=== PATIENT | male | born 1990 | race Two or more races ===

== ENCOUNTER 2016-11-06 23:01 | Emergency (ER) | payer SELFPAY ==
[2016-11-06] MEDS ORDERED: LORazepam 2 MG/ML VIAL (J2060) As Ordered ONE (23:30)
[2016-11-06] MEDS ORDERED: ONDANSETRON 4MG/2ML VIAL (J2405) As Ordered ONE (23:30)
[2016-11-06] MEDS ORDERED: KETOROLAC 30 MG/ML VIAL (J1885) As Ordered ONE (23:30)
[2016-11-06 23:49] LABS: BASO % 0.3 % (0.0-1.0); EOS # 0.2 K/mm3 (0.0-0.50); LARGE UNSTAINED CELL # 0.2 K/mm3 (0.0-0.4); LARGE UNSTAINED CELL % 1.7 % (0.0-4.0); LYMPH # 1.2 K/mm3 (1.5-6.5); LYMPH % 10.4 % (24.0-44.0); MEAN CORPUSCULAR HGB CONC 34.7 g/dl (32.0-36.5); MEAN CORPUSCULAR VOLUME 89.4 fl (80.0-96.0); MONO # 0.5 K/mm3 (0.0-0.8); MONO % 4.7 % (0.0-5.0); NEUTROPHILS # 9.1 K/mm3 (1.8-7.7); NEUTROPHILS % 80.9 % (36.0-66.0); PLATELET COUNT, AUTOMATED 249 k/mm3 (150-450); WHITE BLOOD COUNT 11.2 K/mm3 (4.0-10.0)
--- NOTE | 2016-11-07 00:30 | REPUSA ---
CLINICAL HISTORY: Abdominal pain TECHNIQUE: CT of the abdomen and pelvis was performed without intravenous contrast by obtaining uriel guous CT axial slices from level of the heart to the proximal femoral diaphyses. Multiplanar reformat s were obtained in the coronal and sagittal projections. COMPARISON: None FINDINGS : LOWER CHEST: The lung bases are clear. Heart is normal in size. No pleural or pericardial effusion is seen. LIVER: The liver is normal in size and contour. BILIARY SYSTEM: No intrahepatic biliary ductal dilatation is seen. The common duct is normal in calib er. The gallbladder is unremarkable with no focal or diffuse wall thickening seen. No pericholecystic fluid is seen. No calcified biliary calculi are identified. PANCREAS: The pancreas is normal in size, contour and density. No suspicious cystic lesion or ductal dilatation. SPLEEN: Normal in size with no suspicious cystic lesion. ADRENALS: The adrenal glands are unremarkable. KIDNEYS/URETERS: The kidneys are normal in size. No calcified renal or ureteral calculi are seen. No suspicious cystic lesion or hydronephrosis. The ureters are not dilated. URINARY BLADDER: The urinary bladder is unremarkable without calcified stone, wall thickening or dive rticula seen. PROSTATE/SEMINAL VESICLES: Within normal size limits with no suspicious cystic lesion. AORTA AND ILIAC ARTERIES: No aneurysmal dilatation of the aorta or iliac arteries is seen. LYMPH NODES: No enlarged adenopathy. GASTROINTESTINAL: Stomach, duodenum and bowel normal in caliber with no abnormal dilatation, stenosis , or wall thickening. PERITONEUM/RETROPERITONEUM: No ascites or suspicious fluid collection, extraluminal air, or suspiciou s mass. ABDOMINAL/PELVIC WALL: No hernia is identified. OSSEOUS STRUCTURES/SOFT TISSUES: No suspicious osseous lesion, acute fracture, or soft tissue abnorma lity. IMPRESSION : No acute intra-abdominal pelvic abnormality identified
[2016-11-07 00:32] LABS: AMPHETAMINES LEVEL URINE NEGATIVE (NEGATIVE); BENZODIAZEPINES URINE NEGATIVE (NEGATIVE); COCAINE METABOLITE URINE NEGATIVE (NEGATIVE); CONTROL LINE INT CTR LINE PRESENT; METHADONE URINE NEGATIVE (NEGATIVE); OPIATES URINE NEGATIVE (NEGATIVE); TRICYCLIC ANTIDEPRESS URINE NEGATIVE (NEGATIVE)
[2016-11-07 00:37] LABS: INR 0.94
[2016-11-07 00:43] LABS: ALBUMIN 3.9 GM/DL (3.2-5.2); ALBUMIN/GLOBULIN RATIO 1.11 (1.00-1.93); ALKALINE PHOSPHATASE 113 U/L (45-117); ALT/SGPT 24 U/L (12-78); AMYLASE 60 U/L (25-115); ANION GAP 10 MEQ/L (8-16); AST/SGOT 15 U/L (15-37); BILIRUBIN,DIRECT 0.1 MG/DL (0.0-0.2); BILIRUBIN,TOTAL 0.4 MG/DL (0.2-1.0); BLOOD UREA NITROGEN 18 MG/DL (7-18); CALCIUM LEVEL 8.7 MG/DL (8.5-10.1); CARBON DIOXIDE LEVEL 24 MEQ/L (21-32); CHLORIDE LEVEL 105 MEQ/L (98-107); CREATININE FOR GFR 1.08 MG/DL (0.70-1.30); GLOMERULAR FILTRATION RATE > 60.0 (>60); GLUCOSE, FASTING 103 MG/DL (70-105); POTASSIUM SERUM 3.7 MEQ/L (3.5-5.1); SODIUM LEVEL 139 MEQ/L (136-145); TOTAL PROTEIN 7.4 GM/DL (6.4-8.2)
[2016-11-07] MEDS ORDERED: METOCLOPRAMIDE INJ 10MG/2ML VIAL (J2765) As Ordered ONE (02:04)
--- NOTE | 2016-11-07 02:04 | REP ---
Clinical: Cough . Comparison: None . Technique: PA and lateral. Findings: The mediastinum and cardiac silhouette are normal. The lung ascencio are clear and without acute consolidation, effusion, or pneumothorax. The skeletal structures are intact and normal. Impression: 1. No acute cardiopulmonary process. Signed by Lorenzo Proctor MD 11/07/2016 01:55 A
--- NOTE | 2016-11-07 03:14 | EDDOCDS ---
Physician Documentation [facility] Name: Tejas Roman Age: 25 yrs Sex: Male : 1990 Arrival Date: 11/06/2016 Time: 23:01 Bed 9 Private MD: Disposition: 11/07 02:51 Critical Care: Critical care not applicable. pc Disposition: 11/07/16 02:53 Discharged to Home/Self Care. Impression: Gastroparesis - idiopathic, Cannabis abuse. - Condition is Stable. - Prescriptions for Reglan 5 mg Oral tablet - take 1 tablet by ORAL route 4 times per day 30 minutes before meals and at bedtime; 20 tablet. - Medication Reconciliation, Local Pharmacy Hours, Blank Diagnosis Outline form. - [facility]; When: Call to arrange an appointment; Reason: To establish care. - Problem is new. - Symptoms have improved. Historical: - Allergies: SULFA (SULFONAMIDES); - Home Meds: 1. Tylenol elixer 2. Motrin 100 mg/5 mL Oral susp 3. Dayquil (Last dose: 11/06/2016 09:00) - PMHx: Kidney stones; - PSHx: Bowel resection (1991); Stone retrievals; - Social history: Smoking status: Patient uses tobacco products, heavy tobacco smoker. No barriers to communication noted, The patient speaks fluent Vietnamese, Speaks appropriately for age. - Family history: Sister has/had recent sore throat. - : The pt / caregiver states he / she is not on anticoagulants. Home medication list is obtained from the patient, family members. - Exposure Risk Screening:: None identified. Vital Signs: 11/06 23:13 BP 158 / 89 (auto/); mlc 23:14 Pulse 114 MON; Pulse Ox 97% ; mlc 23:18 BP 131 / 87; Pulse 107; Resp 18; Temp 98.5(O); Pulse Ox 98% on R/A; Pain 10/10; kmg1 23:24 Pulse 106 MON; Pulse Ox 96% ; mlc 11/07 00:46 BP 119 / 60; Pulse 80; Resp 18; Temp 100.0(O); Pulse Ox 99% ; Pain 9/10; mlc 00:46 Pain 9/10; mlc 02:11 Weight 81.65 kg / 180.01 lbs; Height 5 ft. 8 in. (172.72 cm); mgs 03:11 BP 118 / 59; Pulse 81; Resp 16; Temp 99.6; Pulse Ox 100% ; Pain 7/10; mlc 02:11 Body Mass Index 27.37 (81.65 kg, 172.72 cm) mgs MDM: 0208 23:19 NS 0.9% 1000 ml IV at 100 mL/hr continuous ordered. ke 23:19 Ondansetron 4 mg IVP once ordered. ke 23:19 ketorolac 30 mg IVP once ordered. ke 23:19 IV Saline Lock ordered. ke 23:19 Undress patient appropriately for examination ordered. ke 23:19 Amylase Ordered. EDMS 23:19 Basic Metabolic Profile Ordered. EDMS 23:19 CBC with Diff Ordered. EDMS 23:19 Lipase Ordered. EDMS 23:19 Liver Profile Ordered. EDMS 23:19 Prothrombin Time Profile\E\INR Ordered. EDMS 23:19 Urinalysis Ordered. EDMS 23:19 Urine Culture Ordered. EDMS 23:19 Urine Toxicology Ordered. EDMS 23:20 Obtain sample by nasopharyngeal swab ordered. ke 23:20 CT ABD & PELVIS: No Contrast Ordered. EDMS 23:21 LORazepam 0.5 mg IVP once ordered. ke 23:21 NOTHING BY MOUTH+DIET ordered. EDMS 23:21 -Influenza A&B Rapid Antigen - Nose Ordered. EDMS 23:21 Acetaminophen Level Ordered. EDMS 23:21 Salicylate Level Ordered. EDMS 23:21 ETOH Ordered. EDMS 23:21 CIP Ordered. EDMS 23:21 Troponin Ordered. EDMS 23:22 Chest, 2 View (pa\E\lat) Ordered. EDMS 23:46 ECG WITH READING ER PHYS+CARDIAG ordered. EDMS 23:59 Financial registration complete. pm4 11/07 00:19 [facility] [place] Payment Agreement was scanned into [employer] and attached to record. pm4 00:34 CBC with Diff Reviewed. pc 00:34 -Influenza A&B Rapid Antigen - Nose Reviewed. pc 01:33 Urinalysis Reviewed. pc 01:33 Urine Toxicology Reviewed. pc 01:33 Amylase Reviewed. pc 01:33 Basic Metabolic Profile Reviewed. pc 01:33 Lipase Reviewed. pc 01:33 Liver Profile Reviewed. pc 01:33 Prothrombin Time Profile\E\INR Reviewed. pc 01:33 CT ABD & PELVIS: No Contrast Reviewed. pc 02:00 Acetaminophen Level Reviewed. pc 02:00 Salicylate Level Reviewed. pc 02:00 ETOH Reviewed. pc 02:00 CIP Reviewed. pc 02:00 Troponin Reviewed. pc 02:00 Test interpretation: LAB - all labs as ordered have been reviewed, interpreted and pc considered in the overall management of the clinical presentation; interpreted by Radiologist and personally reviewed, Abdomen/Pelvis CT; read as normal but obvious gastric distension, gastroparesis. 02:01 Metoclopramide 10 mg IV at 40 mg/hr once over 15 mins ordered. pc 02:51 The patient has been re-examined and re-evaluated. The patient's symptoms have markedly pc improved after treatment. Disposition: The historical points, examination findings, and any diagnostic results supporting the provided diagnosis, were discussed with the patient or legal guardian. The need for outpatient follow up with the provider listed on their discharge instructions was discussed. They were encouraged to return to [facility], or the nearest ED, if symptoms worsen/persist, or for any other questions/concerns. 03:01 Chest, 2 View (pa\E\lat) Reviewed. pc Administered Medications: 11/06 23:50 Drug: NS 0.9% 1000 ml [sodium chloride 0.9 % intravenous solution] Route: IV; Rate: 100 mlc mL/hr; Site: right antecubital; 23:50 Drug: Ondansetron 4 mg [ondansetron HCl 2 mg/mL intravenous solution (2 mL)] Route: mlc IVP; Site: right antecubital; 11/07 00:45 Follow up: Response: [place] [facility] [place]06 23:50 Drug: ketorolac 30 mg [ketorolac 30 mg/mL (1 mL) injection solution (1 mL)] Route: IVP; [facility] [place]: right antecubital; 11/07 00:46 Follow up: Pain 9/10 Adult; Response: No significant change. [facility] [place]/06 23:50 Drug: LORazepam 0.5 mg [lorazepam 2 mg/mL injection solution (0.25 mL)] Route: IVP; [facility] [place]: right antecubital; 11/07 00:45 Follow up: Response: Anxiety is improved [facility] [place]:12 Drug: Metoclopramide 10 mg [metoclopramide 5 mg/mL injection solution] Route: IV; Rate: mgs 40 mg/hr; Infused Over: 15 mins; Site: right antecubital; Signatures: Dispatcher [employer] Olu Tipton MD MD pc Garrison, Kelly, RN RN kmg1 Cordell Graf, HARNESS PULLER HARNESS PULLER Melissa Arriaga RN RN mlc Delon Chatman, Reg Reg pm4 Geoffrey Navarro RN mgs The chart was reviewed and I authenticate all verbal orders and agree with the evaluation and treatment provided.Attachments: 00:19 [facility] Payment Agreement pm4 MTDD
--- NOTE | 2016-11-07 03:14 | EDDOCDS ---
Nurse's Notes [facility] Name: Tejas Roman Age: 25 yrs Sex: Male : 1990 Arrival Date: 11/06/2016 Time: 23:01 Bed 9 Private MD: Diagnosis: Gastroparesis-idiopathic;Cannabis abuse Presentation: 11/06 23:09 Presenting complaint: Patient states: Severe pain all over. No injury. Patient reports kmg1 that he has been in bed for three days with fevers as high as 103.7. Ear pain and mild cough at onset of illness. Patient reports that he drank an 8 oz bottle of childrens tylenol and an 6 oz bottle of childrens motrin this evening since 2129. Aspirin was not taken prior to arrival. Suicide/Homicide risk assessment- the patient denies having any suicidal and/or homicidal ideations and does not present with any other emotional, behavioral or mental health complaints. Status: Patient is not a service employee or dependent. Transition of care: patient was not received from another setting of care. 23:09 Acuity: SHELL Level 3 [facility] 23:09 Method Of Arrival: Walkin/Carried/Asstd km 23:18 Adult Sepsis Screening: The patient does not have new or worsening altered mentation. kmg1 Patient has a respiratory rate of greater than or equal to 22 (1 point). Systolic blood pressure is greater than 100. Patient has a qSOFA score of 1- Negative Sepsis Screen. Triage Assessment: 23:18 General: Appears distressed, uncomfortable, Behavior is anxious, crying, restless. km Pain: Location: Back, knes, hips, sides, shoulders and chest Pain currently is 10 out of 10 on a pain scale. Quality of pain is described as sharp, stabbing, Pain began 2-3 days ago. EENT: Denies pain in left ear and right ear. Cardiovascular: Rhythm is sinus tachycardia No ectopy. Chest pain is described as severe, quality is stabbing, radiates Does not radiate. episodes are continuous began 2229. Respiratory: Airway is patent Respiratory effort is even, unlabored, Respiratory pattern is regular, symmetrical, Reports cough that is. GI: Reports nausea, vomiting. Derm: Skin is diaphoretic. Historical: - Allergies: SULFA (SULFONAMIDES); - Home Meds: 1. Tylenol elixer 2. Motrin 100 mg/5 mL Oral susp 3. Dayquil (Last dose: 11/06/2016 09:00) - PMHx: Kidney stones; - PSHx: Bowel resection (1991); Stone retrievals; - Social history: Smoking status: Patient uses tobacco products, heavy tobacco smoker. No barriers to communication noted, The patient speaks fluent Moroccan, Speaks appropriately for age. - Family history: Sister has/had recent sore throat. - : The pt / caregiver states he / she is not on anticoagulants. Home medication list is obtained from the patient, family members. - Exposure Risk Screening:: None identified. Screenin:14 Screening information is obtained from the patient. Fall risk: No risks identified. mlc Assistance ADL's: requires no assistance with activities of daily living. Abuse/DV Screen: The patient / caregiver reports he/she is: not in a situation that causes fear, pain or injury. Nutritional screening: No deficits noted. Advance Directives: Currently, there is no health care proxy. home support is adequate. Assessment: 23:51 General: Appears ill, Behavior is cooperative, fussy. Pain: Location: generalized Pain mlc currently is 10 out of 10 on a pain scale. Neurological: Level of Consciousness is awake, alert, obeys commands, Oriented to person, place, time. Cardiovascular: Capillary refill < 3 seconds Heart tones S1 S2 present. Cardiovascular: Chest pain is denied. Respiratory: Airway is patent Respiratory effort is even, unlabored, Respiratory pattern is regular, Breath sounds are clear bilaterally. Reports cough that is productive, pain with cough. GI: Abdomen is non- distended Bowel sounds present X 4 quads. Abd is soft X 4 quads Reports nausea, vomiting. Derm: Skin is diaphoretic, Skin is normal. 11/07 00:46 Reassessment: Patient appears in no apparent distress at this time. pain decreased to mlc 9/10. resp easy/unlabored. pt reports feeling warm. IV fluids infusing per order. . 01:49 General: Appears in no apparent distress, comfortable, Behavior is cooperative, pt mlc resting on stretcher. IV fluids infusing per order. resp easy/unlabored. . 03:11 General: Appears in no apparent distress, comfortable, Behavior is cooperative. Pain: mlc Pain currently is 7 out of 10 on a pain scale. Neurological: Level of Consciousness is awake, alert, Oriented to person, place, time. Respiratory: Airway is patent Respiratory effort is even, unlabored, Respiratory pattern is regular. Derm: Skin is normal. Vital Signs: 11/06 23:13 BP 158 / 89 (auto/); mlc 23:14 Pulse 114 MON; Pulse Ox 97% ; mlc 23:18 BP 131 / 87; Pulse 107; Resp 18; Temp 98.5(O); Pulse Ox 98% on R/A; Pain 10/10; kmg1 23:24 Pulse 106 MON; Pulse Ox 96% ; mlc 02/09 00:46 BP 119 / 60; Pulse 80; Resp 18; Temp 100.0(O); Pulse Ox 99% ; Pain 9/10; mlc 00:46 Pain 9/10; mlc 02:11 Weight 81.65 kg; Height 5 ft. 8 in. (172.72 cm); s 03:11 BP 118 / 59; Pulse 81; Resp 16; Temp 99.6; Pulse Ox 100% ; Pain 7/10; mlc 02:11 Body Mass Index 27.37 (81.65 kg, 172.72 cm) [facility] ED Course: 11/06 23:02 Patient visited by Christiano Hicks. zo 23:02 Patient moved to Waiting zo 23:03 Melissa Shea,AZAR is Primary Nurse. kmg1 23:03 Patient moved to 9 kmg1 23:08 [facility] ke 23:08 Patient visited by Cordell Graf FNP. ke 23:08 Patient visited by Cordell Graf FNP. ke 23:12 Triage Initiated kmg1 23:14 The patient / caregiver is instructed regarding the plan of care and ED course. mlc 23:27 Patient visited by Georgina Harrell RN. kmg1 23:49 Troponin Sent. mlc 23:49 CIP Sent. mlc 23:49 ETOH Sent. mlc 23:49 Salicylate Level Sent. mlc 23:49 Acetaminophen Level Sent. mlc 23:50 -Influenza A&B Rapid Antigen - Nose Sent. mlc 23:51 Patient name changed from Tejas\S\\S\Sargent\S\ to Tejas\S\ \S\Abel. EDMS 23:51 Amylase Sent. mlc 23:51 Basic Metabolic Profile Sent. mlc 23:51 CBC with Diff Sent. mlc 23:51 Lipase Sent. mlc 23:51 Liver Profile Sent. mlc 23:51 Prothrombin Time Profile\E\INR Sent. mlc 23:53 Patient visited by Jennifer Ferrara PCA. cln 23:53 EKG done. (by ED staff). Reviewed by Cordell TRAMMELL. cln 23:53 Inserted saline lock: 20 gauge in right antecubital area and blood collected. [place] [facility] [place] tolerated the procedure well. by Pee Navarro RN. 23:54 Patient visited by Melissa Shea RN. mlc 23:55 Olu Ricks MD is Attending Physician. pc 02 00:05 Urine Toxicology Sent. mgs 00:05 Urine Culture Sent. mgs 00:05 Urinalysis Sent. mgs 00:19 Patient name changed from Tejas\S\ \S\Sargent\S\ to Tejas\S\Celso\S\Abel. EDMS 00:19 [facility] [place] Agreement was scanned into [employer] and attached to record. pm4 00:46 CT ABD & PELVIS: No Contrast Returned. EDMS 00:47 Patient visited by Melissa Shea RN. mlc 01:50 Patient visited by Melissa Shea RN. mlc 02:31 Chest, 2 View (pa\E\lat) Returned. EDMS 02:51 Patient visited by Olu Ricks MD. pc 02:52 [facility] is Referral Physician. pc 03:11 Cardiac monitoring not applicable on this patient. mlc 03:11 Discontinued IV lock intact, bleeding controlled, pressure dressing applied, No mlc redness/swelling at site. No procedures done that require assistance. Administered Medications: 11/06 23:50 Drug: NS 0.9% 1000 ml [sodium chloride 0.9 % intravenous solution] Route: IV; Rate: 100 mlc mL/hr; Site: right antecubital; 23:50 Drug: Ondansetron 4 mg [ondansetron HCl 2 mg/mL intravenous solution (2 mL)] Route: mlc IVP; Site: right antecubital; 11/07 00:45 Follow up: Response: Nausea is decreased [facility] 11/06 23:50 Drug: ketorolac 30 mg [ketorolac 30 mg/mL (1 mL) injection solution (1 mL)] Route: IVP; mlc Site: right antecubital; 11/07 00:46 Follow up: Pain 9/10 Adult; Response: No significant change. [facility] 11/06 23:50 Drug: LORazepam 0.5 mg [lorazepam 2 mg/mL injection solution (0.25 mL)] Route: IVP; [facility] Site: right antecubital; 11/07 00:45 Follow up: Response: Anxiety is improved [facility] 02:12 Drug: Metoclopramide 10 mg [metoclopramide 5 mg/mL injection solution] Route: IV; Rate: mgs 40 mg/hr; Infused Over: 15 mins; Site: right antecubital; Order Results: Lab Order: Amylase; SPEC'M 11/06/16 23:38 Test: AMYLASE; Value: 60; Range: 25-115; Units: U/L; Status: F Lab Order: Basic Metabolic Profile; SPEC'M 11/06/16 23:38 Test: GLUCOSE, FASTING; Value: 103; Range: 70-105; Units: MG/DL; Status: F Test: BLOOD UREA NITROGEN; Value: 18; Range: 7-18; Units: MG/DL; Status: F Test: CREATININE FOR GFR; Value: 1.08; Range: 0.70-1.30; Units: MG/DL; Status: F Test: GLOMERULAR FILTRATION RATE; Value: > 60.0; Range: >60; Status: F Test: SODIUM LEVEL; Value: 139; Range: 136-145; Units: MEQ/L; Status: F Test: POTASSIUM SERUM; Value: 3.7; Range: 3.5-5.1; Units: MEQ/L; Status: F Test: CHLORIDE LEVEL; Value: 105; Range: 98-107; Units: MEQ/L; Status: F Test: CARBON DIOXIDE LEVEL; Value: 24; Range: 21-32; Units: MEQ/L; Status: F Test: ANION GAP; Value: 10; Range: 8-16; Units: MEQ/L; Status: F Test: CALCIUM LEVEL; Value: 8.7; Range: 8.5-10.1; Units: MG/DL; Status: F Test Note: ; Units are mL/min/1.73 m2 Chronic Kidney Disease Staging per NKF: Stage I & II GFR >=60 Normal to Mildly Decreased Stage III GFR 30-59 Moderately Decreased Stage IV GFR 15-29 Severely Decreased Stage V GFR <15 Very Little GFR Left ESRD GFR <15 on FINGERNAIL TECHNICIAN Lab Order: CBC with Diff; BILL 11/06/16 23:38 Test: WHITE BLOOD COUNT; Value: 11.2; Range: 4.0-10.0; Abnormal: Above high normal; Units: K/mm3; Status: F Test: RED BLOOD COUNT; Value: 5.11; Range: 4.30-6.10; Units: M/mm3; Status: F Test: HEMOGLOBIN; Value: 15.9; Range: 14.0-18.0; Units: g/dl; Status: F Test: HEMATOCRIT; Value: 45.7; Range: 42.0-52.0; Units: %; Status: F Test: MEAN CORPUSCULAR VOLUME; Value: 89.4; Range: 80.0-96.0; Units: fl; Status: F Test: MEAN CORPUSCULAR HEMOGLOBIN; Value: 31.0; Range: 27.0-33.0; Units: pg; Status: F Test: MEAN CORPUSCULAR HGB CONC; Value: 34.7; Range: 32.0-36.5; Units: g/dl; Status: F Test: RED CELL DISTRIBUTION WIDTH; Value: 12.0; Range: 11.5-14.5; Units: %; Status: F Test: PLATELET COUNT, AUTOMATED; Value: 249; Range: 150-450; Units: k/mm3; Status: F Test: NEUTROPHILS %; Value: 80.9; Range: 36.0-66.0; Abnormal: Above high normal; Units: %; Status: F Test: LYMPH %; Value: 10.4; Range: 24.0-44.0; Abnormal: Below low normal; Units: %; Status: F Test: MONO %; Value: 4.7; Range: 0.0-5.0; Units: %; Status: F Test: EOS %; Value: 2.0; Range: 0.0-3.0; Units: %; Status: F Test: BASO %; Value: 0.3; Range: 0.0-1.0; Units: %; Status: F Test: LARGE UNSTAINED CELL %; Value: 1.7; Range: 0.0-4.0; Units: %; Status: F Test: NEUTROPHILS #; Value: 9.1; Range: 1.8-7.7; Abnormal: Above high normal; Units: K/mm3; Status: F Test: LYMPH #; Value: 1.2; Range: 1.5-6.5; Abnormal: Below low normal; Units: K/mm3; Status: F Test: MONO #; Value: 0.5; Range: 0.0-0.8; Units: K/mm3; Status: F Test: EOS #; Value: 0.2; Range: 0.0-0.50; Units: K/mm3; Status: F Test: BASO #; Value: 0.0; Range: 0.0-0.2; Units: K/mm3; Status: F Test: LARGE UNSTAINED CELL #; Value: 0.2; Range: 0.0-0.4; Units: K/mm3; Status: F Lab Order: Lipase; [facility]' 11/06/16 23:38 Test: LIPASE; Value: 96; Range: 73-393; Units: U/L; Status: F Lab Order: Liver Profile; [facility] 11/06/16 23:38 Test: AST/SGOT; Value: 15; Range: 15-37; Units: U/L; Status: F Test: ALT/SGPT; Value: 24; Range: 12-78; Units: U/L; Status: F Test: ALKALINE PHOSPHATASE; Value: 113; Range: 45-117; Units: U/L; Status: F Test: BILIRUBIN,TOTAL; Value: 0.4; Range: 0.2-1.0; Units: MG/DL; Status: F Test: BILIRUBIN,DIRECT; Value: 0.1; Range: 0.0-0.2; Units: MG/DL; Status: F Test: TOTAL PROTEIN; Value: 7.4; Range: 6.4-8.2; Units: GM/DL; Status: F Test: ALBUMIN; Value: 3.9; Range: 3.2-5.2; Units: GM/DL; Status: F Test: ALBUMIN/GLOBULIN RATIO; Value: 1.11; Range: 1.00-1.93; Status: F Lab Order: Prothrombin Time Profile\E\INR; SPEC'11/06/16 23:38 Test: PROTHROMBIN TIME; Value: 12.7; Range: 12.3-14.5; Units: SECONDS; Status: F Test: INR; Value: 0.94; Status: F Test Note: ; THERAPUTIC HUMAN INR VALUES INDICATIONS NORMAL RANGES PROPHYLAXIS/TREATMENT OF: VENOUS THROMBOSIS 2.0-3.0 PULMONARY EMBOLISM 2.0-3.0 PREVENTION OF SYSTEMIC EMBOLISM FROM: TISSUE HEART VALVES 2.0-3.0 ACUTE MYOCARDIAL INFARCTION 2.0-3.0 VALVULAR HEART DISEASE 2.0-3.0 ATRIAL FIBRILLATION 2.0-3.0 MECHANICAL VALVES(HIGH RISK) 2.5-3.5 RECURRENT MYOCARDIAL INFARCTION 2.5-3.5 Lab Order: Urinalysis; [facility] 11/07/16 00:03 Test: APPEARANCE, URINE; Value: CLEAR; Range: CLEAR; Status: F Test: COLOR, URINE; Value: YELLOW; Range: YELLOW; Status: F Test: PH,URINE; Value: 6.0; Range: 5.0-9.0; Units: UNITS; Status: F Test: SPECIFIC GRAVITY URINE AUTO; Value: 1.030; Range: 1.002-1.035; Status: F Test: PROTEIN, URINE AUTO; Value: NEGATIVE; Range: NEGATIVE; Units: mg/dL; Status: F Test: GLUCOSE, URINE (UA) AUTO; Value: NEGATIVE; Range: NEGATIVE; Units: mg/dL; Status: F Test: KETONE, URINE AUTO; Value: TRACE; Range: NEGATIVE; Abnormal: Above high normal; Units: mg/dL; Status: F Test: UROBILINOGEN, URINE AUTO; Value: 4.0; Range: 0.0-2.0; Abnormal: Above high normal; Units: mg/dL; Status: F Test: BILIRUBIN, URINE AUTO; Value: NEGATIVE; Range: NEGATIVE; Status: F Test: NITRITE, URINE AUTO; Value: NEGATIVE; Range: NEGATIVE; Status: F Test: LEUKOCYTE ESTERASE, URINE AUTO; Value: NEGATIVE; Range: NEGATIVE; Status: F Test: BLOOD, URINE BLOOD; Value: NEGATIVE; Range: NEGATIVE; Status: F Test: SPERM, URINE AUTO; Range: NONE; Status: I Test: WBC, URINE AUTO; Value: 0; Range: 0-3; Units: /HPF; Status: F Test: RBC, URINE AUTO; Value: 5; Range: 0-3; Abnormal: Above high normal; Units: /HPF; Status: F Test: BACTERIA, URINE AUTO; Value: NEGATIVE; Range: NEGATIVE; Status: F Test: SQUAMOUS EPITHELIAL CELL UR AU; Value: 0; Range: 0-6; Units: /HPF; Status: F Test: MUCUS, URINE; Value: SMALL; Range: NEGATIVE; Status: F Test: HYALINE CAST, URINE AUTO; Value: 0; Range: 0-1; Units: /LPF; Status: F Lab Order: Urine Toxicology; SPEC'M 11/07/16 00:03 Test: AMPHETAMINES LEVEL URINE; Value: NEGATIVE; Range: NEGATIVE; Status: F Test: BARBITURATES URINE; Value: NEGATIVE; Range: NEGATIVE; Status: F Test: BENZODIAZEPINES URINE; Value: NEGATIVE; Range: NEGATIVE; Status: F Test: CANNABINOIDS URINE; Value: POSITIVE; Range: NEGATIVE; Abnormal: Above high normal; Status: F Test: COCAINE METABOLITE URINE; Value: NEGATIVE; Range: NEGATIVE; Status: F Test: METHADONE URINE; Value: NEGATIVE; Range: NEGATIVE; Status: F Test: OPIATES URINE; Value: NEGATIVE; Range: NEGATIVE; Status: F Test: TRICYCLIC ANTIDEPRESS URINE; Value: NEGATIVE; Range: NEGATIVE; Status: F Test Note: ; FALSE POSITIVE RESULTS CAN BE CAUSED BY THE USE OF PANTOPRAZOLE (PROTONIX). Lab Order: -Influenza A&B Rapid Antigen - Nose; SPEC'M 11/06/16 23:38 Test: INFLUENZA A RAPID SCR by ICA; Value: INFLUENZA A RESULTS NEGATIVE; Status: F Test: INFLUENZA A RAPID SCR by ICA; Value: Comments:; Status: F Test: INFLUENZA B RAPID SCR by ICA; Value: INFLUENZA B RESULTS NEGATIVE; Status: F Test Note: ; The Influenza test is a direct rapid immunoassay for the qualitative detection of Influenza viral antigen. Cell culture (Viral Culture) testing should be considered to confirm NEGATIVE results and to assist in detecting other viruses that can provide similar clinical symptoms. Please contact the lab within 24 hours ([phone]) if confirmatory testing is desired. Lab Order: Acetaminophen Level; SPEC'M 11/06/16 23:38 Test: ACETAMINOPHEN LEVEL; Value: < 2.0; Range: 10.0-30.0; Abnormal: Below low normal; Units: UG/ML; Status: F Lab Order: Salicylate Level; SPEC11/06/16 23:38 Test: SALICYLATE LEVEL; Value: < 1.7; Range: 5.0-30.0; Abnormal: Below low normal; Units: MG/DL; Status: F Lab Order: ETOH; SPEC11/06/16 23:38 Test: ETHYL ALCOHOL (ETHANOL); Value: < 0.003; Range: 0.000-0.010; Units: %; Status: F Lab Order: CIP; SPEC11/06/16 23:38 Test: CPK CREATINE PHOSPHOKINASE; Value: 93; Range: 39-308; Units: U/L; Status: F Test: CK-MB VALUE MASS; Value: 1.0; Range: 0.0-3.6; Units: NG/ML; Status: F Test: MB/CK RELATIVE INDEX; Value: 1.07; Range: < OR =4; Status: F Test Note: ; DIAGNOSIS CRITERIA MMB ng/ml Relative Index (RI) NON-AMI < or = 5 N/A [place] ZONE > 5 < or = 4 AMI > 5 > 4 Lab Order: Troponin; 11/06/16 23:38 Test: TROPONIN I; Value: < 0.02; Range: < 0.10; Units: NG/ML; Status: F Test Note: ; Troponin I Reference Interval for [employer] LOCI: 99th Percentile= 0.00-0.045 ng/ml Risk Stratification: <= 0.10 ng/ml Decreased Risk for Adverse Clinical Events. 0.10-1.50 ng/ml Increased Risk for Adverse Clinical Events. Evaluation of additional criterion and/or repeat testing in 2-6 hours is suggested to rule out myocardial damage. >= 1.50 ng/ml Indicative of Myocardial Injury. Radiology Order: CT ABD & PELVIS: No Contrast Test: CT ABD & PELVIS: No Contrast REASON FOR EXAMINATION: Abdomen Pain; ; CLINICAL HISTORY: Abdominal pain; TECHNIQUE: CT of the abdomen and pelvis was performed without intravenous contrast by obtaining uriel; guous CT axial slices from level of the heart to the proximal femoral diaphyses. Multiplanar reformat; s were obtained in the coronal and sagittal projections.; COMPARISON: None; FINDINGS :; LOWER CHEST: The lung bases are clear. Heart is normal in size. No pleural or pericardial effusion is; seen.; LIVER: The liver is normal in size and contour.; BILIARY SYSTEM: No intrahepatic biliary ductal dilatation is seen. The common duct is normal in calib; er. The gallbladder is unremarkable with no focal or diffuse wall thickening seen. No pericholecystic; fluid is seen. No calcified biliary calculi are identified.; PANCREAS: The pancreas is normal in size, contour and density. No suspicious cystic lesion or ductal; dilatation.; SPLEEN: Normal in size with no suspicious cystic lesion.; ADRENALS: The adrenal glands are unremarkable.; KIDNEYS/URETERS: The kidneys are normal in size. No calcified renal or ureteral calculi are seen. No; suspicious cystic lesion or hydronephrosis. The ureters are not dilated.; URINARY BLADDER: The urinary bladder is unremarkable without calcified stone, wall thickening or dive; rticula seen.; PROSTATE/SEMINAL VESICLES: Within normal size limits with no suspicious cystic lesion.; AORTA AND ILIAC ARTERIES: No aneurysmal dilatation of the aorta or iliac arteries is seen.; LYMPH NODES: No enlarged adenopathy.; GASTROINTESTINAL: Stomach, duodenum and bowel normal in caliber with no abnormal dilatation, stenosis; , or wall thickening.; PERITONEUM/RETROPERITONEUM: No ascites or suspicious fluid collection, extraluminal air, or suspiciou; s mass.; ABDOMINAL/PELVIC WALL: No hernia is identified.; OSSEOUS STRUCTURES/SOFT TISSUES: No suspicious osseous lesion, acute fracture, or soft tissue abnorma; lity.; IMPRESSION :; No acute intra-abdominal pelvic abnormality identified; ; Radiology Order: Chest, 2 View (pa\E\lat) Test: Chest, 2 View (pa\E\lat) REASON FOR EXAMINATION: Cough; Clinical: Cough .; ; Comparison: None .; ; Technique: PA and lateral.; ; Findings:; The mediastinum and cardiac silhouette are normal. The lung ascencio are clear and; without acute consolidation, effusion, or pneumothorax. The skeletal structures; are intact and normal.; ; Impression:; 1. No acute cardiopulmonary process.; ; ; Signed by; Lorenzo Proctor MD 11/07/2016 01:55 A; Outcome: 02:53 Discharge ordered by Provider. 03:11 Discharge Assessment: Patient awake, alert and oriented x 3. No cognitive and/or mlc functional deficits noted. Patient verbalized understanding of disposition instructions. patient administered narcotics - yes. Pt provided with safe discharge. The following High Risk Discharge criteria are identified: None. Discharged to home ambulatory, with family. Condition: good Condition: stable Condition: improved. Discharge instructions given to patient, Instructed on discharge instructions, follow up and referral plans. medication usage, Demonstrated understanding of instructions, medications, Pt was receptive of discharge instructions/ teaching. Prescriptions given X 1. CT Study completed. Property sent home with patient. 03:13 Patient left the ED. [facility] Signatures: Dispatcher [employer] EDMS lOu Ricks MD MD pc Garrison, Kelly, RN RN [facility] Cordell Graf FNP FNP ke Olin, Zoeann zo Booth, Mandy,AZAR RN [facility] Geoffrey Navarro RN RN mgs Jennifer Ferrara, RN ALLERGY RN ALLERGY cln Delon Chatman, Reg Reg pm4 Corrections: (The following items were deleted from the chart) 11/06 23:22 23:09 Presenting complaint: Patient states: Severe pain all over. No injury. Patient anish reports that he has been in bed for three days with fevers as high as 103.7. Ear pain and mild cough at onset of illness. anish MTDD
--- NOTE | 2016-11-08 20:14 | ECGEPIP ---
Stationary ECG Study [facility] - ED Test Date: 2016-11-06 Pat Name: GRIFFIN MULLIGAN Department: Room: - Gender: M Warehousing Technician: patrick : 1990 Requested By: ROXANN TRAMMELL Order Number: [id number] Reading MD: Bhavna Ramirez Measurements Intervals [place] Rate: 83 P: 39 SC: 145 QRS: 24 QRSD: 92 T: 40 QT: 324 QTc: 381 Interpretive Statements SINUS RHYTHM WITH SINUS ARRHYTHMIA NO PRIOR FOR COMPARISON Electronically Signed On 11-08-2016 20:14:13 EST by Bhavna Ramirez
--- NOTE | 2016-11-09 04:14 | EDDOCDS ---
Nurse's Notes [facility] Name: Tejas Roman Age: 25 yrs Sex: Male : 1990 Arrival Date: 11/06/2016 Time: 23:01 Bed 9 Private MD: Diagnosis: Gastroparesis-idiopathic;Cannabis abuse Presentation: 11/06 23:09 Presenting complaint: Patient states: Severe pain all over. No injury. Patient reports kmg1 that he has been in bed for three days with fevers as high as 103.7. Ear pain and mild cough at onset of illness. Patient reports that he drank an 8 oz bottle of childrens tylenol and an 6 oz bottle of childrens motrin this evening since 2129. Aspirin was not taken prior to arrival. Suicide/Homicide risk assessment- the patient denies having any suicidal and/or homicidal ideations and does not present with any other emotional, behavioral or mental health complaints. Status: Patient is not a nursing services manager or dependent. Transition of care: patient was not received from another setting of care. 23:09 Acuity: [place] 3 [facility] [place] Method Of Arrival: Walkin/Carried/Asstd km 23:18 Adult Sepsis Screening: The patient does not have new or worsening altered mentation. kmg1 Patient has a respiratory rate of greater than or equal to 22 (1 point). Systolic blood pressure is greater than 100. Patient has a qSOFA score of 1- Negative Sepsis Screen. Triage Assessment: 23:18 General: Appears distressed, uncomfortable, Behavior is anxious, crying, restless. km Pain: Location: Back, knes, hips, sides, shoulders and chest Pain currently is 10 out of 10 on a pain scale. Quality of pain is described as sharp, stabbing, Pain began 2-3 days ago. EENT: Denies pain in left ear and right ear. Cardiovascular: Rhythm is sinus tachycardia No ectopy. Chest pain is described as severe, quality is stabbing, radiates Does not radiate. episodes are continuous began 2229. Respiratory: Airway is patent Respiratory effort is even, unlabored, Respiratory pattern is regular, symmetrical, Reports cough that is. GI: Reports nausea, vomiting. Derm: Skin is diaphoretic. Historical: - Allergies: SULFA (SULFONAMIDES); - Home Meds: 1. Tylenol elixer 2. Motrin 100 mg/5 mL Oral susp 3. Dayquil (Last dose: 11/06/2016 09:00) - PMHx: Kidney stones; - PSHx: Bowel resection (1991); Stone retrievals; - Social history: Smoking status: Patient uses tobacco products, heavy tobacco smoker. No barriers to communication noted, The patient speaks fluent Canadian, Speaks appropriately for age. - Family history: Sister has/had recent sore throat. - : The pt / caregiver states he / she is not on anticoagulants. Home medication list is obtained from the patient, family members. - Exposure Risk Screening:: None identified. Screenin:14 Screening information is obtained from the patient. Fall risk: No risks identified. mlc Assistance ADL's: requires no assistance with activities of daily living. Abuse/DV Screen: The patient / caregiver reports he/she is: not in a situation that causes fear, pain or injury. Nutritional screening: No deficits noted. Advance Directives: Currently, there is no health care proxy. home support is adequate. Assessment: 23:51 General: Appears ill, Behavior is cooperative, fussy. Pain: Location: generalized Pain mlc currently is 10 out of 10 on a pain scale. Neurological: Level of Consciousness is awake, alert, obeys commands, Oriented to person, place, time. Cardiovascular: Capillary refill < 3 seconds Heart tones S1 S2 present. Cardiovascular: Chest pain is denied. Respiratory: Airway is patent Respiratory effort is even, unlabored, Respiratory pattern is regular, Breath sounds are clear bilaterally. Reports cough that is productive, pain with cough. GI: Abdomen is non- distended Bowel sounds present X 4 quads. Abd is soft X 4 quads Reports nausea, vomiting. Derm: Skin is diaphoretic, Skin is normal. 11/07 00:46 Reassessment: Patient appears in no apparent distress at this time. pain decreased to mlc 9/10. resp easy/unlabored. pt reports feeling warm. IV fluids infusing per order. . 01:49 General: Appears in no apparent distress, comfortable, Behavior is cooperative, pt mlc resting on stretcher. IV fluids infusing per order. resp easy/unlabored. . 03:11 General: Appears in no apparent distress, comfortable, Behavior is cooperative. Pain: mlc Pain currently is 7 out of 10 on a pain scale. Neurological: Level of Consciousness is awake, alert, Oriented to person, place, time. Respiratory: Airway is patent Respiratory effort is even, unlabored, Respiratory pattern is regular. Derm: Skin is normal. Vital Signs: 11/06 23:13 BP 158 / 89 (auto/); mlc 23:14 Pulse 114 MON; Pulse Ox 97% ; mlc 23:18 BP 131 / 87; Pulse 107; Resp 18; Temp 98.5(O); Pulse Ox 98% on R/A; Pain 10/10; kmg1 23:24 Pulse 106 MON; Pulse Ox 96% ; mlc 02/09 00:46 BP 119 / 60; Pulse 80; Resp 18; Temp 100.0(O); Pulse Ox 99% ; Pain 9/10; mlc 00:46 Pain 9/10; mlc 02:11 Weight 81.65 kg; Height 5 ft. 8 in. (172.72 cm); s 03:11 BP 118 / 59; Pulse 81; Resp 16; Temp 99.6; Pulse Ox 100% ; Pain 7/10; mlc 02:11 Body Mass Index 27.37 (81.65 kg, 172.72 cm) [facility] [place]: 11/06 23:02 Patient visited by Christiano Hicks. zo 23:02 Patient moved to Waiting zo 23:03 Melissa Shea,AZAR is Primary Nurse. kmg1 23:03 Patient moved to 9 kmg1 23:08 Cordell Graf FNP [facility]. ke 23:08 Patient visited by Cordell Graf FNP. ke 23:08 Patient visited by Cordell Graf FNP. ke 23:12 Triage Initiated kmg1 23:14 The patient / caregiver is instructed regarding the plan of care and ED course. mlc 23:27 Patient visited by Georgina Harrell RN. kmg1 23:49 Troponin Sent. mlc 23:49 CIP Sent. mlc 23:49 ETOH Sent. mlc 23:49 Salicylate Level Sent. mlc 23:49 Acetaminophen Level Sent. mlc 23:50 -Influenza A&B Rapid Antigen - Nose Sent. mlc 23:51 Patient name changed from Tejas\S\\S\[place]\S\ to Tejas\S\ \S\[place]. EDMS 23:51 Amylase Sent. mlc 23:51 Basic Metabolic Profile Sent. mlc 23:51 CBC with Diff Sent. mlc 23:51 Lipase Sent. mlc 23:51 Liver Profile Sent. mlc 23:51 Prothrombin Time Profile\E\INR Sent. mlc 23:53 Patient visited by Jennifer Ferrara PCA. cln 23:53 EKG done. (by ED staff). Reviewed by Cordell TRAMMELL. cln 23:53 Inserted saline lock: 20 gauge in right antecubital area and blood collected. The mlc patient tolerated the procedure well. by Pee Navarro RN. 23:54 Patient visited by Melissa Shea RN. mlc 23:55 Olu Ricks MD is Attending Physician. pc 0209 00:05 Urine Toxicology Sent. mgs 00:05 Urine Culture Sent. mgs 00:05 Urinalysis Sent. mgs 00:19 Patient name changed from Tejas\S\ \S\[place]\S\ to Tejas\S\[place]\S\Abel. EDMS 00:19 [facility] [place] Agreement was scanned into [employer] and attached to record. pm4 00:46 CT ABD & PELVIS: No Contrast Returned. EDMS 00:47 Patient visited by Melissa Shea RN. mlc 01:50 Patient visited by Melissa Shea RN. mlc 02:31 Chest, 2 View (pa\E\lat) Returned. EDMS 02:51 Patient visited by Olu Ricks MD. pc 02:52 [facility] is Referral Physician. pc 03:11 Cardiac monitoring not applicable on this patient. mlc 03:11 Discontinued IV lock intact, bleeding controlled, pressure dressing applied, No mlc redness/swelling at site. No procedures done that require assistance. 09:18 T-Sheet-- Draft Copy was scanned into [employer] and attached to record. gb 09:18 ECG/EKG was scanned into [employer] and attached to record. gb 09:19 Radiology Report was scanned into [employer] and attached to record. gb 02 20:20 EKG-ADULT Returned. EDMS Administered Medications: 11/06 23:50 Drug: NS 0.9% 1000 ml [sodium chloride 0.9 % intravenous solution] Route: IV; Rate: 100 mlc mL/hr; Site: right antecubital; 23:50 Drug: Ondansetron 4 mg [ondansetron HCl 2 mg/mL intravenous solution (2 mL)] Route: [facility] [place]; Site: right antecubital; 11/07 00:45 Follow up: Response: Nausea is decreased [facility] [place] 11/06 23:50 Drug: ketorolac 30 mg [ketorolac 30 mg/mL (1 mL) injection solution (1 mL)] Route: [place]P; [facility] [place] Site: right antecubital; 11/07 00:46 Follow up: Pain 9/10 Adult; Response: No significant change. [facility] [place]/06 23:50 Drug: LORazepam 0.5 mg [lorazepam 2 mg/mL injection solution (0.25 mL)] Route: IVP; [facility] [place] Site: right antecubital; 11/07 00:45 Follow up: Response: Anxiety is improved [facility] [place] 02:12 Drug: Metoclopramide 10 mg [metoclopramide 5 mg/mL injection solution] Route: IV; Rate: mgs 40 mg/hr; Infused Over: 15 mins; Site: right antecubital; Order Results: Lab Order: Amylase; SPEC'M 11/06/16 23:38 Test: AMYLASE; Value: 60; Range: 25-115; Units: U/L; Status: F Lab Order: Basic Metabolic Profile; SPEC'M 11/06/16 23:38 Test: GLUCOSE, FASTING; Value: 103; Range: 70-105; Units: MG/DL; Status: F Test: BLOOD UREA NITROGEN; Value: 18; Range: 7-18; Units: MG/DL; Status: F Test: CREATININE FOR GFR; Value: 1.08; Range: 0.70-1.30; Units: MG/DL; Status: F Test: GLOMERULAR FILTRATION RATE; Value: > 60.0; Range: >60; Status: F Test: SODIUM LEVEL; Value: 139; Range: 136-145; Units: MEQ/L; Status: F Test: POTASSIUM SERUM; Value: 3.7; Range: 3.5-5.1; Units: MEQ/L; Status: F Test: CHLORIDE LEVEL; Value: 105; Range: 98-107; Units: MEQ/L; Status: F Test: CARBON DIOXIDE LEVEL; Value: 24; Range: 21-32; Units: MEQ/L; Status: F Test: ANION GAP; Value: 10; Range: 8-16; Units: MEQ/L; Status: F Test: CALCIUM LEVEL; Value: 8.7; Range: 8.5-10.1; Units: MG/DL; Status: F Test Note: ; Units are mL/min/1.73 m2 Chronic Kidney Disease Staging per NKF: Stage I & II GFR >=60 Normal to Mildly Decreased Stage III GFR 30-59 Moderately Decreased Stage IV GFR 15-29 Severely Decreased Stage V GFR <15 Very Little GFR Left ESRD GFR <15 on [employer] Lab Order: CBC with Diff; SPEC'M 11/06/16 23:38 Test: WHITE BLOOD COUNT; Value: 11.2; Range: 4.0-10.0; Abnormal: Above high normal; Units: K/mm3; Status: F Test: RED BLOOD COUNT; Value: 5.11; Range: 4.30-6.10; Units: M/mm3; Status: F Test: HEMOGLOBIN; Value: 15.9; Range: 14.0-18.0; Units: g/dl; Status: F Test: HEMATOCRIT; Value: 45.7; Range: 42.0-52.0; Units: %; Status: F Test: MEAN CORPUSCULAR VOLUME; Value: 89.4; Range: 80.0-96.0; Units: fl; Status: F Test: MEAN CORPUSCULAR HEMOGLOBIN; Value: 31.0; Range: 27.0-33.0; Units: pg; Status: F Test: MEAN CORPUSCULAR HGB CONC; Value: 34.7; Range: 32.0-36.5; Units: g/dl; Status: F Test: RED CELL DISTRIBUTION WIDTH; Value: 12.0; Range: 11.5-14.5; Units: %; Status: F Test: PLATELET COUNT, AUTOMATED; Value: 249; Range: 150-450; Units: k/mm3; Status: F Test: NEUTROPHILS %; Value: 80.9; Range: 36.0-66.0; Abnormal: Above high normal; Units: %; Status: F Test: LYMPH %; Value: 10.4; Range: 24.0-44.0; Abnormal: Below low normal; Units: %; Status: F Test: MONO %; Value: 4.7; Range: 0.0-5.0; Units: %; Status: F Test: EOS %; Value: 2.0; Range: 0.0-3.0; Units: %; Status: F Test: BASO %; Value: 0.3; Range: 0.0-1.0; Units: %; Status: F Test: LARGE UNSTAINED CELL %; Value: 1.7; Range: 0.0-4.0; Units: %; Status: F Test: NEUTROPHILS #; Value: 9.1; Range: 1.8-7.7; Abnormal: Above high normal; Units: K/mm3; Status: F Test: LYMPH #; Value: 1.2; Range: 1.5-6.5; Abnormal: Below low normal; Units: K/mm3; Status: F Test: MONO #; Value: 0.5; Range: 0.0-0.8; Units: K/mm3; Status: F Test: EOS #; Value: 0.2; Range: 0.0-0.50; Units: K/mm3; Status: F Test: BASO #; Value: 0.0; Range: 0.0-0.2; Units: K/mm3; Status: F Test: LARGE UNSTAINED CELL #; Value: 0.2; Range: 0.0-0.4; Units: K/mm3; Status: F Lab Order: Lipase; [facility] 11/06/16 23:38 Test: LIPASE; Value: 96; Range: 73-393; Units: U/L; Status: F Lab Order: Liver Profile; [facility] 11/06/16 23:38 Test: AST/SGOT; Value: 15; Range: 15-37; Units: U/L; Status: F Test: ALT/SGPT; Value: 24; Range: 12-78; Units: U/L; Status: F Test: ALKALINE PHOSPHATASE; Value: 113; Range: 45-117; Units: U/L; Status: F Test: BILIRUBIN,TOTAL; Value: 0.4; Range: 0.2-1.0; Units: MG/DL; Status: F Test: BILIRUBIN,DIRECT; Value: 0.1; Range: 0.0-0.2; Units: MG/DL; Status: F Test: TOTAL PROTEIN; Value: 7.4; Range: 6.4-8.2; Units: GM/DL; Status: F Test: ALBUMIN; Value: 3.9; Range: 3.2-5.2; Units: GM/DL; Status: F Test: ALBUMIN/GLOBULIN RATIO; Value: 1.11; Range: 1.00-1.93; Status: F Lab Order: Prothrombin Time Profile\E\INR; [facility] 11/06/16 23:38 Test: PROTHROMBIN TIME; Value: 12.7; Range: 12.3-14.5; Units: SECONDS; Status: F Test: INR; Value: 0.94; Status: F Test Note: ; THERAPUTIC HUMAN INR VALUES INDICATIONS NORMAL RANGES PROPHYLAXIS/TREATMENT OF: VENOUS THROMBOSIS 2.0-3.0 PULMONARY EMBOLISM 2.0-3.0 PREVENTION OF SYSTEMIC EMBOLISM FROM: TISSUE HEART VALVES 2.0-3.0 ACUTE MYOCARDIAL INFARCTION 2.0-3.0 VALVULAR HEART DISEASE 2.0-3.0 ATRIAL FIBRILLATION 2.0-3.0 MECHANICAL VALVES(HIGH RISK) 2.5-3.5 RECURRENT MYOCARDIAL INFARCTION 2.5-3.5 Lab Order: Urinalysis; [facility] 11/07/16 00:03 Test: APPEARANCE, URINE; Value: CLEAR; Range: CLEAR; Status: F Test: COLOR, URINE; Value: YELLOW; Range: YELLOW; Status: F Test: PH,URINE; Value: 6.0; Range: 5.0-9.0; Units: UNITS; Status: F Test: SPECIFIC GRAVITY URINE AUTO; Value: 1.030; Range: 1.002-1.035; Status: F Test: PROTEIN, URINE AUTO; Value: NEGATIVE; Range: NEGATIVE; Units: mg/dL; Status: F Test: GLUCOSE, URINE (UA) AUTO; Value: NEGATIVE; Range: NEGATIVE; Units: mg/dL; Status: F Test: KETONE, URINE AUTO; Value: TRACE; Range: NEGATIVE; Abnormal: Above high normal; Units: mg/dL; Status: F Test: UROBILINOGEN, URINE AUTO; Value: 4.0; Range: 0.0-2.0; Abnormal: Above high normal; Units: mg/dL; Status: F Test: BILIRUBIN, URINE AUTO; Value: NEGATIVE; Range: NEGATIVE; Status: F Test: NITRITE, URINE AUTO; Value: NEGATIVE; Range: NEGATIVE; Status: F Test: LEUKOCYTE ESTERASE, URINE AUTO; Value: NEGATIVE; Range: NEGATIVE; Status: F Test: BLOOD, URINE BLOOD; Value: NEGATIVE; Range: NEGATIVE; Status: F Test: SPERM, URINE AUTO; Range: NONE; Status: I Test: WBC, URINE AUTO; Value: 0; Range: 0-3; Units: /HPF; Status: F Test: RBC, URINE AUTO; Value: 5; Range: 0-3; Abnormal: Above high normal; Units: /HPF; Status: F Test: BACTERIA, URINE AUTO; Value: NEGATIVE; Range: NEGATIVE; Status: F Test: SQUAMOUS EPITHELIAL CELL UR AU; Value: 0; Range: 0-6; Units: /HPF; Status: F Test: MUCUS, URINE; Value: SMALL; Range: NEGATIVE; Status: F Test: HYALINE CAST, URINE AUTO; Value: 0; Range: 0-1; Units: /LPF; Status: F Lab Order: Urine Culture; SPEC'M 11/07/16 00:03 Test: URINE CULTURE; Value: <EXTERNAL COMMENT eCWMed> FULL REPORT IN LAB NOTES (eCW and Medent).; Status: F Test: URINE CULTURE; Value: URINE CULTURE RESULT NO GROWTH; Status: F Lab Order: Urine Toxicology; SPEC'M 11/07/16 00:03 Test: AMPHETAMINES LEVEL URINE; Value: NEGATIVE; Range: NEGATIVE; Status: F Test: BARBITURATES URINE; Value: NEGATIVE; Range: NEGATIVE; Status: F Test: BENZODIAZEPINES URINE; Value: NEGATIVE; Range: NEGATIVE; Status: F Test: CANNABINOIDS URINE; Value: POSITIVE; Range: NEGATIVE; Abnormal: Above high normal; Status: F Test: COCAINE METABOLITE URINE; Value: NEGATIVE; Range: NEGATIVE; Status: F Test: METHADONE URINE; Value: NEGATIVE; Range: NEGATIVE; Status: F Test: OPIATES URINE; Value: NEGATIVE; Range: NEGATIVE; Status: F Test: TRICYCLIC ANTIDEPRESS URINE; Value: NEGATIVE; Range: NEGATIVE; Status: F Test Note: ; FALSE POSITIVE RESULTS CAN BE CAUSED BY THE USE OF PANTOPRAZOLE (PROTONIX). Lab Order: -Influenza A&B Rapid Antigen - Nose; SPEC'M 11/06/16 23:38 Test: INFLUENZA A RAPID SCR by ICA; Value: INFLUENZA A RESULTS NEGATIVE; Status: F Test: INFLUENZA A RAPID SCR by ICA; Value: Comments:; Status: F Test: INFLUENZA B RAPID SCR by ICA; Value: INFLUENZA B RESULTS NEGATIVE; Status: F Test Note: ; The Influenza test is a direct rapid immunoassay for the qualitative detection of Influenza viral antigen. Cell culture (Viral Culture) testing should be considered to confirm NEGATIVE results and to assist in detecting other viruses that can provide similar clinical symptoms. Please contact the lab within 24 hours ([phone]) if confirmatory testing is desired. Lab Order: Acetaminophen Level; SPEC' 11/06/16 23:38 Test: ACETAMINOPHEN LEVEL; Value: < 2.0; Range: 10.0-30.0; Abnormal: Below low normal; Units: UG/ML; Status: F Lab Order: Salicylate Level; [facility] 11/06/16 23:38 Test: SALICYLATE LEVEL; Value: < 1.7; Range: 5.0-30.0; Abnormal: Below low normal; Units: MG/DL; Status: F Lab Order: ETOH; [facility] 11/06/16 23:38 Test: ETHYL ALCOHOL (ETHANOL); Value: < 0.003; Range: 0.000-0.010; Units: %; Status: F Lab Order: CIP; [facility] 11/06/16 23:38 Test: CPK CREATINE PHOSPHOKINASE; Value: 93; Range: 39-308; Units: U/L; Status: F Test: CK-MB VALUE MASS; Value: 1.0; Range: 0.0-3.6; Units: NG/ML; Status: F Test: MB/CK RELATIVE INDEX; Value: 1.07; Range: < OR =4; Status: F Test Note: ; DIAGNOSIS CRITERIA MMB ng/ml Relative Index (RI) NON-AMI < or = 5 N/A [place] > 5 < or = 4 AMI > 5 > 4 Lab Order: Troponin; [facility] 11/06/16 23:38 Test: TROPONIN I; Value: < 0.02; Range: < 0.10; Units: NG/ML; Status: F Test Note: ; Troponin I Reference Interval for [employer] LOCI: 99th Percentile= 0.00-0.045 ng/ml Risk Stratification: <= 0.10 ng/ml Decreased Risk for Adverse Clinical Events. 0.10-1.50 ng/ml Increased Risk for Adverse Clinical Events. Evaluation of additional criterion and/or repeat testing in 2-6 hours is suggested to rule out myocardial damage. >= 1.50 ng/ml Indicative of Myocardial Injury. Radiology Order: CT ABD & PELVIS: No Contrast Test: CT ABD & PELVIS: No Contrast REASON FOR EXAMINATION: Abdomen Pain; ; CLINICAL HISTORY: Abdominal pain; TECHNIQUE: CT of the abdomen and pelvis was performed without intravenous contrast by obtaining uriel; guous CT axial slices from level of the heart to the proximal femoral diaphyses. Multiplanar reformat; s were obtained in the coronal and sagittal projections.; COMPARISON: None; FINDINGS :; LOWER CHEST: The lung bases are clear. Heart is normal in size. No pleural or pericardial effusion is; seen.; LIVER: The liver is normal in size and contour.; BILIARY SYSTEM: No intrahepatic biliary ductal dilatation is seen. The common duct is normal in calib; er. The gallbladder is unremarkable with no focal or diffuse wall thickening seen. No pericholecystic; fluid is seen. No calcified biliary calculi are identified.; PANCREAS: The pancreas is normal in size, contour and density. No suspicious cystic lesion or ductal; dilatation.; SPLEEN: Normal in size with no suspicious cystic lesion.; ADRENALS: The adrenal glands are unremarkable.; KIDNEYS/URETERS: The kidneys are normal in size. No calcified renal or ureteral calculi are seen. No; suspicious cystic lesion or hydronephrosis. The ureters are not dilated.; URINARY BLADDER: The urinary bladder is unremarkable without calcified stone, wall thickening or dive; rticula seen.; PROSTATE/SEMINAL VESICLES: Within normal size limits with no suspicious cystic lesion.; AORTA AND ILIAC ARTERIES: No aneurysmal dilatation of the aorta or iliac arteries is seen.; LYMPH NODES: No enlarged adenopathy.; GASTROINTESTINAL: Stomach, duodenum and bowel normal in caliber with no abnormal dilatation, stenosis; , or wall thickening.; PERITONEUM/RETROPERITONEUM: No ascites or suspicious fluid collection, extraluminal air, or suspiciou; s mass.; ABDOMINAL/PELVIC WALL: No hernia is identified.; OSSEOUS STRUCTURES/SOFT TISSUES: No suspicious osseous lesion, acute fracture, or soft tissue abnorma; lity.; IMPRESSION :; No acute intra-abdominal pelvic abnormality identified; ; Radiology Order: Chest, 2 View (pa\E\lat) Test: Chest, 2 View (pa\E\lat) REASON FOR EXAMINATION: Cough; Clinical: Cough .; ; Comparison: None .; ; Technique: PA and lateral.; ; Findings:; The mediastinum and cardiac silhouette are normal. The lung ascencio are clear and; without acute consolidation, effusion, or pneumothorax. The skeletal structures; are intact and normal.; ; Impression:; 1. No acute cardiopulmonary process.; ; ; Signed by; Lorenzo Proctor MD 11/07/2016 01:55 A; Radiology Order: EKG-ADULT Test: EKG-ADULT REASON FOR EXAMINATION: Chest Pain; Stationary ECG Study; [facility] - ED; ; Test Date: 2016-11-06; Pat Name: TEJAS ROMAN Department:; Room: -; Gender: M Alignment Specialist: patrick; : 1990 Requested By: CORDELL TRAMMELL; Order Number: [id number] Reading MD: Bhavna Ramirez; Measurements; Intervals [place]; Rate: 83 P: 39; DE: 145 QRS: 24; QRSD: 92 T: 40; QT: 324; QTc: 381; Interpretive Statements; SINUS RHYTHM WITH SINUS ARRHYTHMIA; NO PRIOR FOR COMPARISON; Electronically Signed On 11-08-2016 20:14:13 EST by Bhavna Ramirez; Outcome: 02:53 Discharge ordered by Provider. pc 03:11 Discharge Assessment: Patient awake, alert and oriented x 3. No cognitive and/or mlc functional deficits noted. Patient verbalized understanding of disposition instructions. patient administered narcotics - yes. Pt provided with safe discharge. The following High Risk Discharge criteria are identified: None. Discharged to home ambulatory, with family. Condition: good Condition: stable Condition: improved. Discharge instructions given to patient, Instructed on discharge instructions, follow up and referral plans. medication usage, Demonstrated understanding of instructions, medications, Pt was receptive of discharge instructions/ teaching. Prescriptions given X 1. CT Study completed. Property sent home with patient. 03:13 Patient left the ED. mlc Signatures: Dispatcher [facility] EDSD Olu Ricks MD MD pc Garrison, Kelly, RN RN km Chanel Holder, Reg Reg gb Cordell Graf, HYPERBARIC TECHNOLOGIST HYPERBARIC TECHNOLOGIST Christiano Malhotra Mandy,RN RN Geoffrey Turner,RN RN mgs Jennifer Ferrara, PACKING MACHINE FEEDER PACKING MACHINE FEEDER cln Delon Chatman, Reg Reg pm4 Corrections: (The following items were deleted from the chart) 11/06 23:22 23:09 Presenting complaint: Patient states: Severe pain all over. No injury. Patient anish reports that he has been in bed for three days with fevers as high as 103.7. Ear pain and mild cough at onset of illness. kmg1 Chart Complete MTDD
--- NOTE | 2016-11-09 04:14 | EDDOCDS ---
Physician Documentation [facility] Name: Tejas Roman Age: 25 yrs Sex: Male : 1990 Arrival Date: 11/06/2016 Time: 23:01 Bed 9 Private MD: Disposition: 11/07 02:51 Critical Care: Critical care not applicable. pc Disposition: 11/07/16 02:53 Discharged to Home/Self Care. Impression: Gastroparesis - idiopathic, Cannabis abuse. - Condition is Stable. - Prescriptions for Reglan 5 mg Oral tablet - take 1 tablet by ORAL route 4 times per day 30 minutes before meals and at bedtime; 20 tablet. - Medication Reconciliation, Local Pharmacy Hours, Blank Diagnosis Outline form. - [facility]; When: Call to arrange an appointment; Reason: To establish care. - Problem is new. - Symptoms have improved. Historical: - Allergies: SULFA (SULFONAMIDES); - Home Meds: 1. Tylenol elixer 2. Motrin 100 mg/5 mL Oral susp 3. Dayquil (Last dose: 11/06/2016 09:00) - PMHx: Kidney stones; - PSHx: Bowel resection (1991); Stone retrievals; - Social history: Smoking status: Patient uses tobacco products, heavy tobacco smoker. No barriers to communication noted, The patient speaks fluent Georgian, Speaks appropriately for age. - Family history: Sister has/had recent sore throat. - : The pt / caregiver states he / she is not on anticoagulants. Home medication list is obtained from the patient, family members. - Exposure Risk Screening:: None identified. Vital Signs: 11/06 23:13 BP 158 / 89 (auto/); mlc 23:14 Pulse 114 MON; Pulse Ox 97% ; mlc 23:18 BP 131 / 87; Pulse 107; Resp 18; Temp 98.5(O); Pulse Ox 98% on R/A; Pain 10/10; kmg1 23:24 Pulse 106 MON; Pulse Ox 96% ; mlc 11/07 00:46 BP 119 / 60; Pulse 80; Resp 18; Temp 100.0(O); Pulse Ox 99% ; Pain 9/10; mlc 00:46 Pain 9/10; mlc 02:11 Weight 81.65 kg / 180.01 lbs; Height 5 ft. 8 in. (172.72 cm); mgs 03:11 BP 118 / 59; Pulse 81; Resp 16; Temp 99.6; Pulse Ox 100% ; Pain 7/10; mlc 02:11 Body Mass Index 27.37 (81.65 kg, 172.72 cm) mgs MDM: 0208 23:19 NS 0.9% 1000 ml IV at 100 mL/hr continuous ordered. ke 23:19 Ondansetron 4 mg IVP once ordered. ke 23:19 ketorolac 30 mg IVP once ordered. ke 23:19 IV Saline Lock ordered. ke 23:19 Undress patient appropriately for examination ordered. ke 23:19 Amylase Ordered. EDMS 23:19 Basic Metabolic Profile Ordered. EDMS 23:19 CBC with Diff Ordered. EDMS 23:19 Lipase Ordered. EDMS 23:19 Liver Profile Ordered. EDMS 23:19 Prothrombin Time Profile\E\INR Ordered. EDMS 23:19 Urinalysis Ordered. EDMS 23:19 Urine Culture Ordered. EDMS 23:19 Urine Toxicology Ordered. EDMS 23:20 Obtain sample by nasopharyngeal swab ordered. ke 23:20 CT ABD & PELVIS: No Contrast Ordered. EDMS 23:21 LORazepam 0.5 mg IVP once ordered. ke 23:21 NOTHING BY MOUTH+DIET ordered. EDMS 23:21 -Influenza A&B Rapid Antigen - Nose Ordered. EDMS 23:21 Acetaminophen Level Ordered. EDMS 23:21 Salicylate Level Ordered. EDMS 23:21 ETOH Ordered. EDMS 23:21 CIP Ordered. EDMS 23:21 Troponin Ordered. EDMS 23:22 Chest, 2 View (pa\E\lat) Ordered. EDMS 23:46 ECG WITH READING ER PHYS+CARDIAG ordered. EDMS 23:59 Financial registration complete. pm4 11/07 00:19 [facility] [place] Agreement was scanned into [employer] and attached to record. pm4 00:34 CBC with Diff Reviewed. pc 00:34 -Influenza A&B Rapid Antigen - Nose Reviewed. pc 01:33 Urinalysis Reviewed. pc 01:33 Urine Toxicology Reviewed. pc 01:33 Amylase Reviewed. pc 01:33 Basic Metabolic Profile Reviewed. pc 01:33 Lipase Reviewed. pc 01:33 Liver Profile Reviewed. pc 01:33 Prothrombin Time Profile\E\INR Reviewed. pc 01:33 CT ABD & PELVIS: No Contrast Reviewed. pc 02:00 Acetaminophen Level Reviewed. pc 02:00 Salicylate Level Reviewed. pc 02:00 ETOH Reviewed. pc 02:00 CIP Reviewed. pc 02:00 Troponin Reviewed. pc 02:00 Test interpretation: LAB - all labs as ordered have been reviewed, interpreted and pc considered in the overall management of the clinical presentation; interpreted by Radiologist and personally reviewed, Abdomen/Pelvis CT; read as normal but obvious gastric distension, gastroparesis. 02:01 Metoclopramide 10 mg IV at 40 mg/hr once over 15 mins ordered. pc 02:51 The patient has been re-examined and re-evaluated. The patient's symptoms have markedly pc improved after treatment. Disposition: The historical points, examination findings, and any diagnostic results supporting the provided diagnosis, were discussed with the patient or legal guardian. The need for outpatient follow up with the provider listed on their discharge instructions was discussed. They were encouraged to return to [facility], or the nearest ED, if symptoms worsen/persist, or for any other questions/concerns. 03:01 Chest, 2 View (pa\E\lat) Reviewed. pc 09:18 T-Sheet-- Draft Copy was scanned into [employer] and attached to record. gb 09:18 ECG/EKG was scanned into [employer] and attached to record. gb 09:19 Radiology Report was scanned into [employer] and attached to record. gb Administered Medications: 11/06 23:50 Drug: NS 0.9% 1000 ml [sodium chloride 0.9 % intravenous solution] Route: IV; Rate: 100 mlc mL/hr; Site: right antecubital; 23:50 Drug: Ondansetron 4 mg [ondansetron HCl 2 mg/mL intravenous solution (2 mL)] Route: mlc IVP; Site: right antecubital; 11/07 00:45 Follow up: Response: Nausea is decreased [facility] [place] 11/06 23:50 Drug: ketorolac 30 mg [ketorolac 30 mg/mL (1 mL) injection solution (1 mL)] Route: IVP; [facility] [place] Site: right antecubital; 11/07 00:46 Follow up: Pain 9/10 Adult; Response: No significant change. [facility] [place] 11/06 23:50 Drug: LORazepam 0.5 mg [lorazepam 2 mg/mL injection solution (0.25 mL)] Route: IVP; [facility] [place] Site: right antecubital; 11/07 00:45 Follow up: Response: Anxiety is improved [facility] [place] 02:12 Drug: Metoclopramide 10 mg [metoclopramide 5 mg/mL injection solution] Route: IV; Rate: mgs 40 mg/hr; Infused Over: 15 mins; Site: right antecubital; Signatures: Dispatcher [employer] Olu Tipton MD MD Georgina Harrell RN RN [facility] [place] Chanel Holder, Reg Reg gb Cordell Graf FNP [employer] AD[employer] Melissa Arriaga RN RN [facility] [place] Delon Chatman, Reg Reg pm4 Geoffrey Navarro RN mgs The chart was reviewed and I authenticate all verbal orders and agree with the evaluation and treatment provided.Attachments: 00:19 [facility] [place] Payment Agreement pm4 09:18 T-Sheet-- Draft Copy gb 09:18 ECG/EKG Chart Complete MTDD
--- NOTE | 2016-11-09 04:14 | EDDOCDS ---
Physician Documentation [facility] Name: Tejas Roman Age: 25 yrs Sex: Male : 1990 Arrival Date: 11/06/2016 Time: 23:01 Bed 9 Private MD: Disposition: 11/07 02:51 Critical Care: Critical care not applicable. pc Disposition: 11/07/16 02:53 Discharged to Home/Self Care. Impression: Gastroparesis - idiopathic, Cannabis abuse. - Condition is Stable. - Prescriptions for Reglan 5 mg Oral tablet - take 1 tablet by ORAL route 4 times per day 30 minutes before meals and at bedtime; 20 tablet. - Medication Reconciliation, Local Pharmacy Hours, Blank Diagnosis Outline form. - [facility]; When: Call to arrange an appointment; Reason: To establish care. - Problem is new. - Symptoms have improved. Historical: - Allergies: SULFA (SULFONAMIDES); - Home Meds: 1. Tylenol elixer 2. Motrin 100 mg/5 mL Oral susp 3. Dayquil (Last dose: 11/06/2016 09:00) - PMHx: Kidney stones; - PSHx: Bowel resection (1991); Stone retrievals; - Social history: Smoking status: Patient uses tobacco products, heavy tobacco smoker. No barriers to communication noted, The patient speaks fluent Lithuanian, Speaks appropriately for age. - Family history: Sister has/had recent sore throat. - : The pt / caregiver states he / she is not on anticoagulants. Home medication list is obtained from the patient, family members. - Exposure Risk Screening:: None identified. Vital Signs: 11/06 23:13 BP 158 / 89 (auto/); mlc 23:14 Pulse 114 MON; Pulse Ox 97% ; mlc 23:18 BP 131 / 87; Pulse 107; Resp 18; Temp 98.5(O); Pulse Ox 98% on R/A; Pain 10/10; kmg1 23:24 Pulse 106 MON; Pulse Ox 96% ; mlc 11/07 00:46 BP 119 / 60; Pulse 80; Resp 18; Temp 100.0(O); Pulse Ox 99% ; Pain 9/10; mlc 00:46 Pain 9/10; mlc 02:11 Weight 81.65 kg / 180.01 lbs; Height 5 ft. 8 in. (172.72 cm); mgs 03:11 BP 118 / 59; Pulse 81; Resp 16; Temp 99.6; Pulse Ox 100% ; Pain 7/10; mlc 02:11 Body Mass Index 27.37 (81.65 kg, 172.72 cm) mgs MDM: 0208 23:19 NS 0.9% 1000 ml IV at 100 mL/hr continuous ordered. ke 23:19 Ondansetron 4 mg IVP once ordered. ke 23:19 ketorolac 30 mg IVP once ordered. ke 23:19 IV Saline Lock ordered. ke 23:19 Undress patient appropriately for examination ordered. ke 23:19 Amylase Ordered. EDMS 23:19 Basic Metabolic Profile Ordered. EDMS 23:19 CBC with Diff Ordered. EDMS 23:19 Lipase Ordered. EDMS 23:19 Liver Profile Ordered. EDMS 23:19 Prothrombin Time Profile\E\INR Ordered. EDMS 23:19 Urinalysis Ordered. EDMS 23:19 Urine Culture Ordered. EDMS 23:19 Urine Toxicology Ordered. EDMS 23:20 Obtain sample by nasopharyngeal swab ordered. ke 23:20 CT ABD & PELVIS: No Contrast Ordered. EDMS 23:21 LORazepam 0.5 mg IVP once ordered. ke 23:21 NOTHING BY MOUTH+DIET ordered. EDMS 23:21 -Influenza A&B Rapid Antigen - Nose Ordered. EDMS 23:21 Acetaminophen Level Ordered. EDMS 23:21 Salicylate Level Ordered. EDMS 23:21 ETOH Ordered. EDMS 23:21 CIP Ordered. EDMS 23:21 Troponin Ordered. EDMS 23:22 Chest, 2 View (pa\E\lat) Ordered. EDMS 23:46 ECG WITH READING ER PHYS+CARDIAG ordered. EDMS 23:59 Financial registration complete. pm4 11/07 00:19 [facility] [place] Payment Agreement was scanned into [employer] and attached to record. pm4 00:34 CBC with Diff Reviewed. pc 00:34 -Influenza A&B Rapid Antigen - Nose Reviewed. pc 01:33 Urinalysis Reviewed. pc 01:33 Urine Toxicology Reviewed. pc 01:33 Amylase Reviewed. pc 01:33 Basic Metabolic Profile Reviewed. pc 01:33 Lipase Reviewed. pc 01:33 Liver Profile Reviewed. pc 01:33 Prothrombin Time Profile\E\INR Reviewed. pc 01:33 CT ABD & PELVIS: No Contrast Reviewed. pc 02:00 Acetaminophen Level Reviewed. pc 02:00 Salicylate Level Reviewed. pc 02:00 ETOH Reviewed. pc 02:00 CIP Reviewed. pc 02:00 Troponin Reviewed. pc 02:00 Test interpretation: LAB - all labs as ordered have been reviewed, interpreted and pc considered in the overall management of the clinical presentation; interpreted by Radiologist and personally reviewed, Abdomen/Pelvis CT; read as normal but obvious gastric distension, gastroparesis. 02:01 Metoclopramide 10 mg IV at 40 mg/hr once over 15 mins ordered. pc 02:51 The patient has been re-examined and re-evaluated. The patient's symptoms have markedly pc improved after treatment. Disposition: The historical points, examination findings, and any diagnostic results supporting the provided diagnosis, were discussed with the patient or legal guardian. The need for outpatient follow up with the provider listed on their discharge instructions was discussed. They were encouraged to return to [facility], or the nearest ED, if symptoms worsen/persist, or for any other questions/concerns. 03:01 Chest, 2 View (pa\E\lat) Reviewed. pc 09:18 T-Sheet-- Draft Copy was scanned into [employer] and attached to record. gb 09:18 ECG/EKG was scanned into [employer] and attached to record. gb 09:19 Radiology Report was scanned into [employer] and attached to record. gb Administered Medications: 11/06 23:50 Drug: NS 0.9% 1000 ml [sodium chloride 0.9 % intravenous solution] Route: IV; Rate: 100 mlc mL/hr; Site: right antecubital; 23:50 Drug: Ondansetron 4 mg [ondansetron HCl 2 mg/mL intravenous solution (2 mL)] Route: mlc IVP; Site: right antecubital; 11/07 00:45 Follow up: Response: Nausea is decreased [facility] [place] 11/06 23:50 Drug: ketorolac 30 mg [ketorolac 30 mg/mL (1 mL) injection solution (1 mL)] Route: IVP; [facility] [place] Site: right antecubital; 11/07 00:46 Follow up: Pain 9/10 Adult; Response: No significant change. [facility] [place] 11/06 23:50 Drug: LORazepam 0.5 mg [lorazepam 2 mg/mL injection solution (0.25 mL)] Route: IVP; [facility] [place] Site: right antecubital; 11/07 00:45 Follow up: Response: Anxiety is improved [facility] [place] 02:12 Drug: Metoclopramide 10 mg [metoclopramide 5 mg/mL injection solution] Route: IV; Rate: mgs 40 mg/hr; Infused Over: 15 mins; Site: right antecubital; Signatures: Dispatcher [employer] Olu Tipton MD MD Georgina Harrell RN RN [facility] [place] Chanel Holder, Reg Reg gb Cordell Graf FNP LAW WRITER Melissa Arriaga RN RN [facility] [place] Delon Chatman, Reg Reg pm4 Geoffrey Navarro RN mgs The chart was reviewed and I authenticate all verbal orders and agree with the evaluation and treatment provided.Attachments: 00:19 [facility] [place] Payment Agreement pm4 09:18 T-Sheet-- Draft Copy gb 09:18 ECG/EKG Chart Complete MTDD
== END 2016-11-07 03:13 | disposition home or self-care (01) ==
LOC: M ED 23:01 → EDBD 23:01 → M ED 11-07 03:13
DX: K31.84 Gastroparesis (principal); Z88.2 Allergy status to sulfonamides; F17.210 Nicotine dependence, cigarettes, uncomplicated; Z87.442 Personal history of urinary calculi
CPT/HCPCS: 36415; 71020; 74176; 80048; 80076; 80306; 81001; 82150; 82550; 82553; 83690; 85025; 85610; 87086; 87804; 93005; 96374; 96375; 99285; G0480; J1885; J2060; J2405; J2765

== ENCOUNTER → 2016-11-09 | Outpatient (REF) | payer OTHER | END | disposition home or self-care (01) | LOC: M SFHCLERA 11:53 | PROVIDERS: ATTEND Nurse Practitioner Family | DX: J02.9 Acute pharyngitis, unspecified (principal) ==

== ENCOUNTER 2017-02-05 13:06 | Emergency (ER) | payer OTHER, SELFPAY ==
[~2017-02-05] VITALS: Ht 172.7 cm; Wt 77.1 kg
[2017-02-05] MEDS ORDERED: NAPR500T PO (14:28)
--- NOTE | 2017-02-05 14:36 | REP ---
Right clavicle: Two views. History: Right shoulder injury. Question distal clavicle fracture. Findings: AP and tube angled views of the right clavicle demonstrate normal bones, joints and soft tissues. No fracture or subluxation is seen. Impression: No fracture noted. Signed by Flo Carson MD 02/05/2017 04:34 P
[2017-02-05 14:39] VITALS: BP 140/72
== END 2017-02-05 14:47 | disposition home or self-care (01) ==
LOC: M ED 13:55
DX: S40.011A Contusion of right shoulder, initial encounter (principal); W17.89XA Other fall from one level to another, initial encounter; Y92.099 Unspecified place in other non-institutional residence as the place of occurrence of the external cause; Y93.89 Activity, other specified; Y99.8 Other external cause status; Z91.041 Radiographic dye allergy status; Z88.2 Allergy status to sulfonamides; F17.200 Nicotine dependence, unspecified, uncomplicated